=== PATIENT | female | born 1940 | race Caucasian/White ===

== ENCOUNTER 2017-04-28 07:37 | Outpatient (CLI) | payer MEDICARE, BC | END 2017-04-28 07:38 | disposition home or self-care (01) | LOC: BICULT 07:37 | PROVIDERS: ATTEND Family Medicine | DX: Z12.31 Encounter for screening mammogram for malignant neoplasm of breast (principal); R10.811 Right upper quadrant abdominal tenderness | CPT/HCPCS: 76705; 77063; 77067 ==

== ENCOUNTER 2017-05-04 07:27 | Outpatient (CLI) | payer MEDICARE, BC ==
[2017-05-04] MEDS ORDERED: Iopamidol 370 76% 100 ML VIAL ONE (09:00)
--- NOTE | 2017-05-04 10:24 | CT ---
CT ABDOMEN WITH IV CONTRAST: Date: 05-04-17 History: Right upper quadrant tenderness, palpable abnormality. Comparison: None available. FINDINGS: There is an uncalcified pleural based pulmonary nodule at the posterolateral left lung base which bakari sures approximately 5 mm. Lung bases are otherwise clear. There is an 8 mm low density lesion seen within the anterior segment of the right hepatic lobe which does demonstrate fluid attenuation and likely represents a small hepatic cyst. There is a small subce ntimeter, too small to characterize, hypodense lesion seen in the most superior aspect of the lateral segment of the left hepatic lobe which cannot be further characterized on this exam. The spleen, pancreas, bilateral adrenal glands, kidneys, and opacified bowel demonstrate a normal CT appearance. An extrarenal pelvis is incidentally noted involving the left kidney. Mild vascular calcifications are seen in the abdominal aorta. There is a moderate amount of retained fecal material seen throughout the visualized colon suggesting an element of constipation. No free fluid, fluid collection, or lymphadenopathy is seen in the abdomen or pelvis. There is no mas s or fluid collection seen in the subcutaneous soft tissues of the right upper quadrant. There are degenerative changes seen in the spine. IMPRESSION: 1. Pleural based pulmonary nodule measuring 5 mm, left lung base. 2. Right hepatic lobe cyst with difficult to characterize subcentimeter hypodense lesion in the later al segment left hepatic lobe. 3. Constipation. 4. No mass or fluid collection is seen in the subcutaneous soft tissues of the right upper quadrant t o correspond to reported bulge in the right upper quadrant. 5. No mass or lymphadenopathy is seen in the abdomen. POS: CARLOS ALBERTO
== END 2017-05-04 07:28 | disposition home or self-care (01) ==
LOC: SCSCT 07:27
PROVIDERS: ATTEND Family Medicine
DX: R10.11 Right upper quadrant pain (principal); R93.5 Abnormal findings on diagnostic imaging of other abdominal regions, including retroperitoneum; K59.00 Constipation, unspecified; K76.89 Other specified diseases of liver
CPT/HCPCS: 74160

== ENCOUNTER 2017-05-14 14:03 | Emergency (ER) | payer MEDICARE, BC | END 2017-05-14 14:49 | disposition home or self-care (01) | LOC: SCSER 14:03 | DX: J02.9 Acute pharyngitis, unspecified (principal); F41.9 Anxiety disorder, unspecified; Z79.899 Other long term (current) drug therapy | CPT/HCPCS: 87081; 87430; 87804; 99283 ==

== ENCOUNTER 2018-02-20 10:30 | Outpatient (CLI) | payer MEDICARE, BC ==
--- NOTE | 2018-02-20 13:52 | CT ---
CT CHEST WITHOUT CONTRAST: Date: 02/20/18 HISTORY: Lung nodule in the left lung base. FINDINGS: Correlation is made with CT abdomen of 05/04/17. Absence of IV contrast reduces the sensitivity of exam, particularly for evaluation of mediastinal, h ilar, and vascular structures. There are vascular calcifications without evidence of aneurysmal dilatation of the abdominal aorta. N o pneumothorax or lobar consolidation is seen. The tracheobronchial tree is patent. The 5.0 mm peripheral nodule in the left lung base is stable since 05/04/17. There is a 5.0 mm nodule in the lateral aspect of the lingula. A 5.0 mm posteromedial nodule is seen in the peripheral aspect of the left lower lobe. A parafissural 4.0 mm nodule is noted on the left. There is a 3.0 mm parenchymal nodule in the left u pper lobe (image 30, series 3). Small cysts in the liver are again seen. There are degenerative changes in the spine. There are small low density lesions in the thyroid gland, stable since CT neck of 06/06/15. IMPRESSION: Multiple small lung nodules. A follow-up exam is recommended in 12 months. POS: CRESCENCIO
== END 2018-02-20 10:31 | disposition home or self-care (01) ==
LOC: SCSCT 10:30
PROVIDERS: ATTEND Family Medicine
DX: R91.8 Other nonspecific abnormal finding of lung field (principal)
CPT/HCPCS: 71250

== ENCOUNTER 2019-03-01 10:12 | Outpatient (CLI) | payer MEDICARE, BC ==
--- NOTE | 2019-03-01 10:44 | BD ---
EXAM: Bone densitometry using DEXA HISTORY: 78 yo female. Screening for postmenopausal osteoporosis FINDINGS: L1--bone mineral density 0.715 g/sq cm; T score -2.5 ; Z score -0.3 L2--bone mineral density 0.743 g/sq cm; T score -2.6 ; Z score -0.1 L3--bone mineral density 0.784 g/sq cm; T score -2.7 ; Z score -0.2 L4--bone mineral density 0.794 g/sq cm; T score -2.4 ; Z score 0.2 Total L1-L4--bone mineral density 0.761 g/sq cm; T score -2.6 ; Z score -0.1 Left femoral neck--bone mineral density0.629; T score -2.0 ; Z score 0.2 Total proximal left femur--bone mineral density 0.791; T score -1.2 ; Z score 0.6 IMPRESSION: Osteoporosis
== END 2019-03-01 10:13 | disposition home or self-care (01) ==
LOC: BICMAMMO 10:12
PROVIDERS: ATTEND Family Medicine
DX: M81.0 Age-related osteoporosis without current pathological fracture (principal)
CPT/HCPCS: 77080

== ENCOUNTER 2019-12-13 09:56 | Outpatient (CLI) | payer MEDICARE, BC ==
--- NOTE | 2019-12-13 11:28 | CT ---
CT CHEST WITHOUT CONTRAST: HISTORY: Lung nodule. COMPARISON: 02/20/2018. FINDINGS: Absence of IV contrast reduces the sensitivity of exam, particularly for evaluation of mediastinal, h ilar, and vascular structures. Small low-density lesions in the thyroid gland are stable. There are vascular calcifications without evidence of aneurysmal dilatation of the thoracic aorta. No pleural or pericardial effusions are se en. The perifissural 4 mm nodule in the left upper lobe is stable. The 3 mm parenchymal nodule in the le ft upper lobe is also stable. The 5 mm peripheral nodule in the left lung base, 5 mm nodule in the posteromedial aspect of the left lower lobe, and 5 mm nodule in the lateral aspect of the lingula remain stable. No new lung nodules are seen. There are degenerative changes in the spine. Cysts in the liver are again seen. IMPRESSION: Stable exam. Continued followup is recommended in 12 months. POS: NIC
== END 2019-12-13 09:57 | disposition home or self-care (01) ==
LOC: SCSCT 09:56
PROVIDERS: ATTEND Family Medicine
DX: R91.8 Other nonspecific abnormal finding of lung field (principal)
CPT/HCPCS: 71250

== ENCOUNTER 2019-12-17 07:23 | Outpatient (CLI) | payer MEDICARE, BC ==
--- NOTE | 2019-12-17 09:15 | RAD ---
XR IVP WO Tomogram STANDARD History: Peripelvic cyst. Dilatation of collecting system. 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 5 minute, 10 minute, 15 m inute prone images were obtained of the abdomen and pelvis. Mild dilatation of the left renal pelvis without calyceal dilatation. Mild prominence of the left ure ter. The right renal collecting system is without dilatation. Urinary bladder is normal. Impression: Mildly prominent left renal pelvis and left ureter without significant calyceal dilatatio n.
--- NOTE | 2019-12-17 09:39 | CT ---
CT abdomen and pelvis without and with IV contrast HISTORY: Hydronephrosis. Follow-up. COMPARISON: 11/14/2019 and 05/04/2017. FINDINGS: Tiny subpleural nodules at the left lateral lung base and small hepatic cysts are stable. Mild distention of the left renal collecting system and proximal ureter is unchanged from the 11/14/19 20 study. The mid to distal ureter is decompressed. No stones are evident. Right renal collecting system and ureter and urinary bladder are incompletely distended without stone evident. No enhancing lesions or diverticula. Small phleboliths are present within the lower retroperitoneum outside of the course of each ureter. The small low-density adenoma within the left adrenal gland is stable on exams dating back to 8. Now more conspicuous at the body of the right adrenal gland is a 0.8 cm oval low density nodule that was not as apparent on previous studies. No evidence of bowel obstruction or inflammation. Degenerative changes of lower lumbar spine are apparent, including disc bulges, with central canal st enosis most pronounced at the L4-5 level. IMPRESSION : Mild left urinary collecting system distention is stable without apparent cause or new abnormality. No evidence of urinary tract calcification. Tiny low-density right adrenal nodule warrants follow-up. Small lung nodules have been characterized on recent CT chest, where a 12 month follow-up was recommended. The adrenal nodules could also be evaluated for stability at that time.
[2019-12-17] MEDS ORDERED: Iopamidol 370 76% 100 ML VIAL ONE (10:34)
== END 2019-12-17 07:24 | disposition home or self-care (01) ==
LOC: RAD 07:23
PROVIDERS: ATTEND Urology
DX: N28.1 Cyst of kidney, acquired (principal); N28.89 Other specified disorders of kidney and ureter; R91.8 Other nonspecific abnormal finding of lung field; E27.8 Other specified disorders of adrenal gland
CPT/HCPCS: 74178; 74410; 82565